=== PATIENT | male | born 1950 | race Caucasian/White ===

== ENCOUNTER 2018-12-16 19:24 | Emergency (ER) | payer MEDICARE, MEDICAID ==
[~2018-12-16] VITALS: Ht 177.8 cm; Wt 60.0 kg
[2018-12-16] MEDS ORDERED: normal saline 1000ML IV soln IVB ONE (19:50)
--- NOTE | 2018-12-16 19:56 | NUR ---
Bruno, DAUGHTER: [phone].
[2018-12-16 20:24] LABS: BASOPHILS % (AUTO) 0.5 % (0-1); EOSINOPHILS % (AUTO) 0.5 % (0-6); HEMATOCRIT 41.5 % (42.0-52.0); HEMOGLOBIN 14.5 g/dl (14.0-17.9); LYMPHOCYTES # (AUTO) 1.9 X10'3 (1.1-4.8); LYMPHOCYTES % (AUTO) 25.8 % (21-51); MEAN CORPUSCULAR HEMOGLOBIN 32.7 PG (27.0-31.0); MEAN CORPUSCULAR VOLUME 93.2 FL (78-98); MEAN PLATELET VOLUME 5.8 FL (7.4-10.4); MONOCYTES # (AUTO) 0.8 X10'3 (0-0.9); MONOCYTES % (AUTO) 10.3 % (2-12); NEUTROPHILS # (AUTO) 4.6 X10'3 (1.8-7.7); NEUTROPHILS % (AUTO) 62.9 % (42-75); PLATELET COUNT 333 X10'3 (140-440); RED BLOOD COUNT 4.45 X10'6 (4.70-6.10); RED CELL DISTRIBUTION WIDTH 13.5 % (11.5-14.5); WHITE BLOOD COUNT 7.3 X10'3 (4.5-11.0)
[2018-12-16 20:33] LABS: ALANINE AMINOTRANSFERASE 22 U/L (12-78); ALBUMIN/GLOBULIN RATIO 0.9 (1.1-1.5); ALKALINE PHOSPHATASE 97 IU/L (46-116); ANION GAP 10 (8-16); ASPARTATE AMINO TRANSFERASE 11 U/L (10-37); BILIRUBIN,TOTAL 0.3 MG/DL (0.1-1.0); BLOOD UREA NITROGEN 4 MG/DL (7-18); BUN/CREATININE RATIO 4.4 (5.4-32.0); CALCIUM 8.8 MG/DL (8.5-10.1); CHLORIDE 94 MMOL/L (99-107); CREATININE 0.91 MG/DL (0.60-1.10); ETHANOL 0.018 GM/DL (0.0-0.010); GLUCOSE 90 MG/DL (70-104); LIPASE 183 U/L (73-393); POTASSIUM 3.4 MMOL/L (3.5-5.1); SODIUM 128 MMOL/L (135-145); TOTAL CARBON DIOXIDE 23.8 MMOL/L (24-32); TOTAL PROTEIN 6.2 G/DL (6.4-8.2); eGFR 83 ML/MIN
[2018-12-16] MEDS ORDERED: potassium Cl 20 mEq SR tablet PO ONE (21:05)
[2018-12-16] MEDS ORDERED: magnesium oxide 400mg tablet PO ONE (21:05)
[2018-12-16 21:22] VITALS: BP 122/77
== END 2018-12-16 21:55 | disposition home or self-care (01) ==
LOC: ER 19:25
DX: E87.6 Hypokalemia (principal); E87.1 Hypo-osmolality and hyponatremia; R55 Syncope and collapse; R42 Dizziness and giddiness; R51 Headache; R61 Generalized hyperhidrosis; R19.7 Diarrhea, unspecified; K92.1 Melena; Z88.0 Allergy status to penicillin
CPT/HCPCS: 36415; 80053; 80320; 83690; 83735; 84484; 85025; 93005; 99284; J7030